=== PATIENT | female | born 1940 | race Caucasian/White ===

== ENCOUNTER → 2016-07-02 | Outpatient (CLI) | payer MEDICARE ==
[~2016-07-02] MED LIST: FEN12TD TD; HYDR-3702 PO; NAPR250T34 PO; OMEP10SU PO
--- NOTE | 2016-07-03 19:28 | Diagnostic Imaging Report ---
INDICATION: Bilateral digital screening mammogram with CAD, 07/02/2016. The current study was also evaluated with a Computer Aided Detection (CAD) system. COMPARISON: 06/19/2015 and 04/12/2014. FINDINGS: The breasts are heterogeneously dense. Postoperative change is noted in the left breast with multiple clips stable from previous. No new suspicious microcalcifications or dominant masses are seen. No interval change appreciated. IMPRESSION: Stable appearance of the breast with no mammographic evidence for malignancy. ACR BI-RADS Category 2: Benign findings. Result letter will be mailed to the patient. Note: At least 10% of breast cancer is not imaged by mammography. Dictated by: Dictated on workstation # [id number]
== END ==
LOC: RAD 07:14
PROVIDERS: ATTEND Family Medicine
DX: Z12.31 Encounter for screening mammogram for malignant neoplasm of breast (principal)